=== PATIENT | female | born 1960 | race Caucasian/White ===

== ENCOUNTER → 2024-11-20 14:11 | Outpatient (REF) | payer BC, SELFPAY | LOC: RAD 14:11 | PROVIDERS: ATTENDING PHYSICIAN Internal Medicine; FAMILY PHYSICIAN Internal Medicine | DX: M17.0 Bilateral primary osteoarthritis of knee (principal) | CPT/HCPCS: 73560; 73565 ==

== ENCOUNTER → 2024-12-06 15:07 | Outpatient (REF) | payer BC, SELFPAY | LOC: RAD 15:07 | PROVIDERS: ATTENDING PHYSICIAN Pediatrics Neonatal-Perinatal Medicine; FAMILY PHYSICIAN Internal Medicine | DX: J20.9 Acute bronchitis, unspecified (principal) | CPT/HCPCS: 71046 ==